=== PATIENT | male | born 1990 | race Caucasian/White ===

== ENCOUNTER 2024-10-19 01:45 | Emergency (ER) | payer MEDICAID, SELFPAY ==
[2024-10-19 01:57] VITALS: BP 138/86; BP 150/90; PULSE 128; PULSE 88; RESP 18; TEMP 36.8; O2SAT 98; BMI 28.7
[2024-10-19 02:31] LABS: MANUAL DIFF FLAG NO
[2024-10-19 02:32] LABS: Basophils Absolute Auto 0.1 X10*3/uL (0.0-0.2); Basophils Percent Auto 0.9 % (0-2); Eosinophils Absolute Auto 0.1 X10*3/uL (0.0-0.4); Eosinophils Percent Auto 2.2 % (0-4); Hematocrit 45.2 % (42.0-52.0); Hemoglobin 16.2 g/dl (14.0-18.0); Imm Gran Abs Auto 0.03 X10*3/uL (0.00-0.03); Imm Gran Pct Auto 0.5 % (0.0-0.4); Lymphocytes Absolute Auto 3.5 X10*3/uL (1.2-4.9); Lymphocytes Percent Auto 54.3 % (20-40); Mean Corpuscular HGB Conc 35.8 g/dl (31.0-36.0); Mean Corpuscular Hemoglobin 30.8 pg (27.0-33.0); Mean Corpuscular Volume 85.9 fL (80.0-98.0); Mean Platelet Volume 8.5 fL (9.4-12.4); Monocytes Absolute Auto 0.5 X10*3/uL (0.1-1.2); Monocytes Percent Auto 8.2 % (2-11); Neutrophils Absolute Auto 2.2 x10*3/uL (2.0-8.3); Neutrophils Percent Auto 33.9 % (45-73); Platelet Count 298 X10*3/uL (160-400); Red Blood Count 5.26 X10*6/uL (4.60-5.80); Red Cell Distribution Width 13.2 % (11.0-16.0); White Blood Count 6.4 X10*3/uL (4.8-10.8)
[2024-10-19 02:51] LABS: Acetaminophen LAB < 3 mcg/mL (<30); Salicylate < 5.0 mg/dL (15-30)
[2024-10-19 02:54] LABS: Alanine Aminotransferase 182 U/L (0-40); Albumin Level 4.1 g/dL (3.5-5.0); Alkaline Phosphatase 87 U/L (39-117); Anion Gap 17 (12-20); Aspartate Amino Transferase 74 U/L (5-37); Bilirubin Direct 0.1 mg/dL (0.0-0.5); Bilirubin Total 0.3 mg/dL (0.0-1.0); Blood Urea Nitrogen 20 mg/dL (9-16); Calcium 8.7 mg/dL (8.4-10.2); Carbon Dioxide 24 mmol/L (22-29); Chloride 111 mmol/L (96-108); Creatinine Clr Calc Pharmacy 145.1; Estimated Glomerular Filt Rate > 60; Ethanol 360 mg/dL; Glucose Random 125 mg/dL (60-115); Lipase 46 U/L (8-78); Potassium 3.7 mmol/L (3.3-5.1); Sodium 148 mmol/L (135-145); Total Protein 7.4 g/dL (6.5-8.0)
[2024-10-19] MEDS: LORazepam 1 MG TABLET PO (03:06)
[2024-10-19 07:07] VITALS: BP 123/71; PULSE 98; RESP 14; TEMP 37; O2SAT 99
--- NOTE | 2024-10-19 07:25 | ED.GENADULT ---
HPI - General Adult General Chief complaint: Psychiatric Symptoms Stated complaint: ETOH Time Seen by Provider: 10/19/24 06:50 Source: patient and EMS Mode of arrival: EMS Limitations: no limitations History of Present Illness ED Provider: BRAEDEN Sotomayor HPI narrative: This is a 33-year-old male presenting to the emergency department via ambulance according to nursing note EMS reports patient called 911 himself with concerns of SI with method but no intent. He tells me that he is no longer feeling suicidal, he reports that he was heavily drinking last night although he recently got out of detox 2 days ago. He reports he has been heavily drinking for the past 2 nights and he is not sure if detox helped. He is interested in speaking to somebody. He denies drugs, tobacco. Denies falls or trauma. He denies fevers, chills, chest pain, shortness of breath, nausea, vomiting, abdominal pain, diarrhea, headache, vision changes, dizziness and weakness at this time. Related Data Allergies Allergy/AdvReac Type Severity Reaction Status Date / Time No Known Allergies Allergy Verified 10/19/24 02:00 Review of Systems Review of Systems: Yes all other systems are reviewed and are negative [facility] Past Medical History Attestation statement: The following information was validated with the patient. Source: old records reviewed and nursing notes reviewed Social History Social History Advance Directives: No Do you have a plan to hurt others: No Plan Physical Exam ED Vital Signs: Vital Signs - 24 hr 10/19/24 01:57 10/19/24 07:07 Temperature 98.3 F 98.6 F Pulse Rate 128 H 98 Respiratory Rate 18 14 Blood Pressure 150/90 H 123/71 Pulse Oximetry 98 99 Oxygen Delivery Method Room Air Room Air BMI result Body Mass Index 28.7 vss Appearance: Alert.? Oriented X3.? No acute distress.? Head: Normocephalic, atraumatic, no step-offs or deformities Eyes: Pupils equal, round and reactive to light.? CVS: Normal heart rate and rhythm.? Pulses normal.? Respiratory: No respiratory distress.? Breath sounds normal.? Abdomen: Soft and nontender.? Skin: Skin warm and dry.? Normal skin color.? Normal skin turgor.? Extremities: No lower extremity edema.? No calf ttp. 5/5 strength to bilateral upper and lower extremities Back: No midline tenderness, no C-spine tenderness, full range of motion, no CVA tenderness bilaterally Neuro: Oriented X 3.? No motor deficit.? No sensory deficit. CN 2-12 intact Course Reevaluation(s) Reevaluation #1: CBC no acute findings needing intervention. Chemistry with mild elevation in BUN likely secondary to poor p.o. intake/dehydration. Transaminases elevated in the 2-1 fashion likely secondary to chronic alcohol abuse. Patient's ethanol level 360, salicylates negative, acetaminophen negative. Urine toxicology pending. At this time patient to be placed into observation to allow more time to be evaluated by the behavioral health team. At time observation started patient common cooperative no acute distress will continue to monitor. Time: 11:20 Medications Administered Discontinued Medications Generic Name Dose Route Start Last Admin Trade Name Freq PRN Reason Stop Dose Admin Lorazepam 1 mg 10/19/24 03:02 10/19/24 03:06 Lorazepam 1 Mg Tablet PO 10/19/24 03:03 1 mg ONCE ONE Administration Medical Decision Making Medical Decision Making [facility] Narrative: 0928 33-year-old male presents with suicidal ideation no particular plan. Physical exam benign History and physical exam concerning for substance abuse/alcohol abuse, anxiety, depression unlikely metabolic derangements. Plan medical clearance evaluation by care team. Differential Diagnosis Differential Diagnoses: The differential diagnosis associated with the presentation includes ( History and physical exam concerning for substance abuse, anxiety, depression unlikely metabolic derangements.) Admission/Observation Consideration of admission/observation: Escalation of care including admission/observation considered Lab Data [facility] Lab Attestation statement: I reviewed the patient's lab results. 10/19/24 02:26 10/19/24 02:26 Labs: Lab Results 10/19/24 Range/Units 02:26 WBC 6.4 (4.8-10.8) X10*3/uL RBC 5.26 (4.60-5.80) X10*6/uL Hgb 16.2 (14.0-18.0) g/dl Hct 45.2 (42.0-52.0) % MCV 85.9 (80.0-98.0) fL MCH 30.8 (27.0-33.0) pg MCHC 35.8 (31.0-36.0) g/dl RDW 13.2 (11.0-16.0) % Plt Count 298 (160-400) X10*3/uL MPV 8.5 L (9.4-12.4) fL Immature Gran % (Auto) 0.5 H (0.0-0.4) % Neut % (Auto) 33.9 L (45-73) % Lymph % (Auto) 54.3 H (20-40) % [place] % (Auto) 8.2 (2-11) % Eos % (Auto) 2.2 (0-4) % Baso % (Auto) 0.9 (0-2) % Lymph # (Auto) 3.5 (1.2-4.9) X10*3/uL [place] # (Auto) 0.5 (0.1-1.2) X10*3/uL Eos # (Auto) 0.1 (0.0-0.4) X10*3/uL Baso # (Auto) 0.1 (0.0-0.2) X10*3/uL Abs Immat Gran (auto) 0.03 (0.00-0.03) X10*3/uL Absolute Neuts (auto) 2.2 (2.0-8.3) x10*3/uL Absolute Nucleated RBC 0.000 (0.0-0.012) X10*3/uL Nucleated RBC % (auto) 0.0 (0.0-0.2) /100WBC Sodium 148 H (135-145) mmol/L Potassium 3.7 (3.3-5.1) mmol/L Chloride 111 H (96-108) mmol/L Carbon Dioxide 24 (22-29) mmol/L Anion Gap 17 (12-20) BUN 20 H (9-16) mg/dL Creatinine 0.82 (0.5-1.4) mg/dL Estim Creat Clear Calc 145.1 Estimated GFR > 60 Random Glucose 125 H (60-115) mg/dL Calcium 8.7 (8.4-10.2) mg/dL Magnesium 2.0 (1.6-2.6) mg/dL Total Bilirubin 0.3 (0.0-1.0) mg/dL Direct Bilirubin 0.1 (0.0-0.5) mg/dL AST 74 H (5-37) U/L ALT 182 H (0-40) U/L Alkaline Phosphatase 87 (39-117) U/L Total Protein 7.4 (6.5-8.0) g/dL Albumin 4.1 (3.5-5.0) g/dL Lipase 46 (8-78) U/L Salicylates < 5.0 L (15-30) mg/dL Acetaminophen < 3 (<30) mcg/mL Ethyl Alcohol 360 H* mg/dL Chronic Conditions Patient?s care impacted by: Other (Please see HPI) Social Determinants Patient?s care significantly limited by Social Determinants of Health including: Other Social Determinant of Health Critical Care Time Critical Care Time Critical Care Time: No Discharge Plan Discharge Clinical Impression: Alcohol intoxication Patient Disposition: Still a Patient Interventions: [place]-Suicide Risk Severity Scale Last Done: 10/19/24 02:35 Print Language: Polish
--- NOTE | 2024-10-19 10:10 | PC.NURSE ---
pt awoke and asked to leave, informed about si statements and need for CARE team eval. they will see him at 1530 and he was informed that this is when his etoh is low enough to have this eval, pt accepting of this and asked for water and given, acrolyne guzmán, states he just went to detox and drank for 2 days. denies any symptoms of withdrawl
[2024-10-19 11:22] LABS: Amphetamine Screen Urine Not Detected (Not Detect); Barbiturates, Urine Not Detected (Not Detect); Benzodiazepines Screen Urine POSITIVE (Not Detect); Buprenorphine Scr Not Detected (Not Detect); Cannabinoid Screen Urine Not Detected (Not Detect); Cocaine Screen Urine POSITIVE (Not Detect); Fentanyl, urine Not Detected (Not Detect); Methadone Screen, Urine Not Detected (Not Detect); Opiate Screen Urine Not Detected (Not Detect); Oxycodone Screen Urine Not Detected (Not Detect); Phencyclidine Screen Urine Not Detected (Not Detect)
[2024-10-19 17:07] VITALS: BP 123/71; PULSE 98; RESP 14; TEMP 37; O2SAT 99
== END 2024-10-19 17:07 | disposition home or self-care (01) ==
PROVIDERS: Emergency Provider Emergency Medicine
DX: F10.129 Alcohol abuse with intoxication, unspecified (principal); R45.851 Suicidal ideations; Y90.8 Blood alcohol level of 240 mg/100 ml or more; Z51.81 Encounter for therapeutic drug level monitoring; Z71.41 Alcohol abuse counseling and surveillance of alcoholic; Z79.899 Other long term (current) drug therapy
CPT/HCPCS: 36415; 80053; 80143; 80179; 80307; 82248; 83690; 83735; 85025; 99284; S9485